=== PATIENT | male | born 1995 | race Caucasian/White ===

== ENCOUNTER 2021-02-19 22:57 | Emergency (ER) | payer MEDICAID ==
[~2021-02-19] VITALS: Ht 152.4 cm; Wt 64.0 kg
[2021-02-19] MEDS ORDERED: ONDANSETRON 4MG ODT PO STA (23:43)
[2021-02-19] MEDS ORDERED: ACETAMINOPHEN 325MG TABLET PO STA (23:43)
[2021-02-20] MEDS ORDERED: TETANUS, DIPHTHERIA, PERTUSSIS VAC/PF 0.5ML (>7YR OLD) IM ONE
[2021-02-20 02:27] VITALS: BP 122/76
== END 2021-02-20 02:28 | disposition home or self-care (01) ==
LOC: ER 22:57
DX: S06.2X0A Diffuse traumatic brain injury without loss of consciousness, initial encounter (principal); S09.8XXA Other specified injuries of head, initial encounter; R11.2 Nausea with vomiting, unspecified; Y04.2XXA Assault by strike against or bumped into by another person, initial encounter; Y93.89 Activity, other specified; Y92.488 Other paved roadways as the place of occurrence of the external cause
CPT/HCPCS: 70450; 70486; 90471; 90715; 99285; Q0162